=== PATIENT | male | born 1965 | race Caucasian/White ===

== ENCOUNTER 2021-10-20 12:17 | Outpatient (CLI) | payer OTHER | END 2021-10-20 12:18 | disposition home or self-care (01) | LOC: CSHLAB 12:17 | PROVIDERS: ATTEND Internal Medicine Gastroenterology | DX: Z20.822 Contact with and (suspected) exposure to COVID-19 (principal); Z12.11 Encounter for screening for malignant neoplasm of colon | CPT/HCPCS: 87811 ==

== ENCOUNTER 2021-10-23 09:00 | Day surgery (SDC) | payer OTHER ==
[2021-10-21 13:24] VITALS: BMI 29.7
[2021-10-23] MEDS ORDERED: Lidocaine 1% MPF 2 ML VIAL ONE (10:54)
[2021-10-23] MEDS ORDERED: Lidocaine 2% MPF 10 ML AMP (For Epidural Use) ONE (11:06)
[2021-10-23] MEDS ORDERED: PROPOFOL 60 ML ONE (11:06)
== END 2021-10-23 12:38 | disposition home or self-care (01) ==
LOC: CSHSDC 09:00
PROVIDERS: ATTEND Internal Medicine Gastroenterology
PROC: 0DJD8ZZ Inspection of Lower Intestinal Tract, Via Natural or Artificial Opening Endoscopic (ICD-10-PCS; principal; 2021-10-23)
DX: Z12.11 Encounter for screening for malignant neoplasm of colon (principal); I10 Essential (primary) hypertension
CPT/HCPCS: J2704